=== PATIENT | male | born 1965 | race Caucasian/White ===

== ENCOUNTER 2024-10-03 11:56 | Inpatient (IN) | payer OTHER ==
[~2024-10-03] VITALS: Ht 182.9 cm; Wt 116.0 kg
[2024-10-03 13:16] LABS: PLATELET COUNT (AUTO) 185 K/uL (150-450); RED BLOOD CELL COUNT(AUTO) 5.15 MIL/uL (4.50-5.90); RED CELL DISTRIBUTION WIDTH 13.4 % (11.5-14.5); WHITE BLOOD COUNT (AUTO) 6.7 K/uL (4.5-11.0)
[2024-10-03 13:22] LABS: CALCIUM, TOTAL 8.9 mg/dL (8.8-10.5); CREATININE 1.00 mg/dL (0.60-1.30); GLOMERULAR FILTR. RATE CALC > 60 mL/min (>60); GLUCOSE,RANDOM 117 mg/dL (70-110); SODIUM SERUM 136 mmol/L (136-145); UREA NITROGEN, BLOOD 15 mg/dL (7-18)
[2024-10-03 13:32] LABS: TROPONIN I-HIGH SENSITIVITY 9 ng/L (<76)
[2024-10-03 14:03] LABS: COVID AG,FIA SOURCE NASAL SWAB
[2024-10-03] MEDS: SODIUM CHLORIDE 0.9% 1,000 ML IV ONE (14:12)
[2024-10-03] MEDS: CefTRIAXone 1 GM/DEXTROSE 50 ML IV ONE (14:12)
[2024-10-03] MEDS: MORPHINE SULFATE 2 MG/ML SYRINGE IVP ONE (14:12)
[2024-10-03] MEDS: AZITHROMYCIN 500 MG/NS 250 ML IV ONE (14:27)
[2024-10-03 14:37] LABS: SARS-COV2 (COVID) ANTIGEN,FIA Negative (Negative)
[2024-10-03 14:38] LABS: INFLUENZA TYPE A NEGATIVE FOR TYPE A (NEGATIVE); INFLUENZA TYPE B NEGATIVE FOR TYPE B (NEGATIVE)
[2024-10-03 16:29] LABS: APPEARANCE,URINE CLEAR (CLEAR); GLUCOSE, URINE (UA) NEGATIVE (NEGATIVE); LEUKOCYTE ESTERASE ,URINE NEGATIVE (NEGATIVE); NITRATE,URINE NEGATIVE (NEGATIVE); OCCULT BLOOD,URINE NEGATIVE (NEGATIVE); PH,URINE DRUG SCREEN 6.0 (5.0-8.0); SPECIFIC GRAVITIY, URINE 1.008 (1.003-1.030)
[2024-10-03 16:45] LABS: ALCOHOL, URINE DRUG SCREEN NEGATIVE (NEGATIVE); AMPHET/METH SCREEN,URINE NEGATIVE (NEGATIVE); BARBITURATE SCREEN, URINE NEGATIVE (NEGATIVE); CANNABINOID SCREEN,URINE NEGATIVE (NEGATIVE); COCAINE SCREEN,URINE NEGATIVE (NEGATIVE); METHADONE SCREEN, URINE NEGATIVE (NEGATIVE)
[2024-10-03 17:23] VITALS: BP 161/100; PULSE 99; RESP 19; TEMP 97.7; O2SAT 95
[2024-10-03 19:37] VITALS: BP 149/92; PULSE 103; RESP 19; TEMP 98.2; O2SAT 96
[2024-10-03] MEDS ORDERED: 0.9% SODIUM CHLORIDE 10 ML SYRINGE IVP ONE (20:24)
[2024-10-03] MEDS ORDERED: SODIUM CHLORIDE 0.9% 100 ML ONE (20:24)
[2024-10-03] MEDS ORDERED: IOHEXOL 350 MG/ML 100 ML VIAL ONE (20:24)
[2024-10-03] MEDS ORDERED: MAGNESIUM HYDROXIDE SUSPENSION 30 ML UDCUP PO PRN (23:15)
[2024-10-03] MEDS ORDERED: ZOLPIDEM TARTRATE 5 MG TABLET PO PRN (23:15)
[2024-10-03] MEDS: MORPHINE SULFATE 2 MG/ML SYRINGE IVP PRN (23:23)
[2024-10-03] MEDS: HEPARIN SODIUM,PORCINE 5,000 UNITS/ML VIAL SQ SCH (23:30)
[2024-10-03 23:51] VITALS: BP 145/102; PULSE 95; RESP 20; TEMP 98.4; O2SAT 98
[2024-10-04] MEDS ORDERED: ACET-3800 PO (03:10)
[2024-10-04] MEDS ORDERED: ACET-2080 PO (03:12)
[2024-10-04] MEDS ORDERED: CITA-144 PO (03:12)
[2024-10-04] MEDS ORDERED: DOCU100C33 PO (03:13)
[2024-10-04] MEDS ORDERED: HYDR25TA2 PO (03:14)
[2024-10-04] MEDS ORDERED: HYDR30CR39 TP (03:14)
[2024-10-04] MEDS ORDERED: LACT10PA5 PO (03:16)
[2024-10-04] MEDS ORDERED: LEVA15HF3 IH (03:17)
[2024-10-04] MEDS ORDERED: LIDO1ADH83 TP (03:18)
[2024-10-04] MEDS ORDERED: PANT-31 PO (03:19)
[2024-10-04] MEDS: MORPHINE SULFATE 2 MG/ML SYRINGE IVP PRN (04:56)
[2024-10-04 04:59] VITALS: BP 148/100; PULSE 96; RESP 20; TEMP 98.1; O2SAT 99
[2024-10-04 07:18] LABS: PLATELET COUNT (AUTO) 158 K/uL (150-450); RED BLOOD CELL COUNT(AUTO) 4.80 MIL/uL (4.50-5.90); RED CELL DISTRIBUTION WIDTH 13.4 % (11.5-14.5); WHITE BLOOD COUNT (AUTO) 6.0 K/uL (4.5-11.0)
[2024-10-04 07:45] LABS: CALCIUM, TOTAL 8.5 mg/dL (8.8-10.5); CREATININE 1.10 mg/dL (0.60-1.30); GLOMERULAR FILTR. RATE CALC > 60 mL/min (>60); GLUCOSE,RANDOM 112 mg/dL (70-110); SODIUM SERUM 139 mmol/L (136-145); UREA NITROGEN, BLOOD 13 mg/dL (7-18)
[2024-10-04 07:59] VITALS: BP 145/93; PULSE 100; RESP 20; TEMP 97.7; O2SAT 97
[2024-10-04] MEDS: PANTOPRAZOLE SODIUM 40 MG DR TABLET PO SCH (08:11)
[2024-10-04] MEDS: NITROGLYCERIN 0.4 MG SUBLINGUAL TABLET #25 SL PRN (09:56)
[2024-10-04] MEDS: ONDANSETRON HCL 4 MG/2 ML VIAL IVP PRN (09:56)
[2024-10-04 11:28] VITALS: BP 143/94; PULSE 109; RESP 19; TEMP 98.2; O2SAT 95
[2024-10-04] MEDS: LACTULOSE 20 GM/30 ML SOLUTION UDCUP PO PRN (12:13)
[2024-10-04] MEDS: BISACODYL 10 MG RECTAL RECTAL SUPPOSITORY PR PRN (12:13)
[2024-10-04 15:45] VITALS: BP 150/98; PULSE 100; RESP 20; TEMP 98.4; O2SAT 96
[2024-10-04] MEDS ORDERED: LACTULOSE 20 GM/30 ML SOLUTION UDCUP PO SCH (16:00)
[2024-10-04 19:30] VITALS: BP 138/88; PULSE 111; RESP 20; TEMP 98.6; O2SAT 93
[2024-10-04 23:18] VITALS: BP 148/96; PULSE 115; RESP 20; TEMP 99.1; O2SAT 100
[2024-10-05 04:00] VITALS: BP 148/58; PULSE 112; RESP 20; TEMP 98.6; O2SAT 96
[2024-10-05 06:59] LABS: PLATELET COUNT (AUTO) 174 K/uL (150-450); RED BLOOD CELL COUNT(AUTO) 4.87 MIL/uL (4.50-5.90); RED CELL DISTRIBUTION WIDTH 13.2 % (11.5-14.5); WHITE BLOOD COUNT (AUTO) 6.4 K/uL (4.5-11.0)
[2024-10-05 07:58] VITALS: BP 159/98; PULSE 117; RESP 24; TEMP 98.4; O2SAT 96
[2024-10-05 08:12] LABS: CALCIUM, TOTAL 8.4 mg/dL (8.8-10.5); CREATININE 0.87 mg/dL (0.60-1.30); GLOMERULAR FILTR. RATE CALC > 60 mL/min (>60); GLUCOSE,RANDOM 116 mg/dL (70-110); SODIUM SERUM 138 mmol/L (136-145); UREA NITROGEN, BLOOD 15 mg/dL (7-18)
[2024-10-05 11:45] VITALS: BP 132/92; PULSE 106; RESP 22; TEMP 98.2; O2SAT 94
[2024-10-05 16:12] VITALS: BP 129/86; PULSE 103; RESP 20; TEMP 97.7; O2SAT 97
[2024-10-05 19:48] VITALS: BP 155/104; PULSE 110; RESP 19; TEMP 98.8; O2SAT 97
[2024-10-05 23:14] VITALS: BP 122/86; PULSE 110; RESP 19; TEMP 98.6; O2SAT 100
[2024-10-06] VITALS (12 sets, daily range): BP systolic 118–147; BP diastolic 89–102; PULSE 96–118; RESP 16–23; TEMP 97.8–99.3; O2SAT 95–100
[2024-10-06] MEDS ORDERED: IPRATROPIUM BROMIDE 0.5 MG/2.5 ML NEB SOLUTION NEB PRN (03:45)
[2024-10-06] MEDS ORDERED: ALBUTEROL SULFATE 2.5 MG/0.5 ML NEB SOLUTION NEB PRN (03:45)
[2024-10-06] MEDS: IPRATROPIUM BROMIDE 0.5 MG/2.5 ML NEB SOLUTION NEB PRN (04:01)
[2024-10-06] MEDS: ALBUTEROL SULFATE 2.5 MG/0.5 ML NEB SOLUTION NEB PRN (04:01)
[2024-10-06] MEDS: BENZOCAINE/MENTHOL [CEPACOL] LOZENGE PO PRN (09:19)
[2024-10-07] VITALS (7 sets, daily range): BP systolic 124–156; BP diastolic 93–106; PULSE 101–118; RESP 18–20; TEMP 97.9–98.8; O2SAT 94–100
[2024-10-07] MEDS: SODIUM PHOSPHATE,MONO-DIBASIC 133 ML ENEMA PR ONE (01:00)
[2024-10-07 14:50] LABS: GLUCOMETER DEV NAME(LOC) 5N.2C; GLUCOSE,POINT OF CARE 124 MG/DL (70-110)
[2024-10-07] MEDS: ACETAMINOPHEN 325 MG TABLET PO PRN (23:47)
[2024-10-08 00:20] VITALS: BP 144/99; PULSE 111; RESP 19; TEMP 98.6; O2SAT 95
[2024-10-08 03:18] VITALS: BP 127/106; PULSE 104; RESP 21; TEMP 98.2; O2SAT 96
[2024-10-08] MEDS: HYDROCODONE/ACETAMINOPHEN 5-325 MG TABLET PO PRN (08:07)
[2024-10-08 08:12] VITALS: BP 147/106; PULSE 112; RESP 21; TEMP 97.7; O2SAT 97
[2024-10-08] MEDS ORDERED: LIDOCAINE/PF 1% 30 ML VIAL ONE (09:56)
[2024-10-08 10:03] VITALS: BP 165/89; PULSE 117
[2024-10-08] MEDS: LIDOCAINE 1% 30 ML/SOD BICARB 8.4% 4 ML SQ ONE (10:51)
[2024-10-08 10:55] VITALS: BP 137/78; PULSE 100
[2024-10-08 15:18] LABS: SPECIMENTYPE,BODY FLUID PLV
[2024-10-08 15:59] LABS: APPEARANCE,SPUN,BODY FLUID CLEAR (CLEAR); APPEARANCE,UNSPUN,BODY FLUID HAZY (CLEAR); COLOR,BODY FLUID YELLOW (LT YELLOW)
[2024-10-08 16:00] LABS: BODY FLUID RBC 260.0 /cu. mm.; LYMPHOCYTES,BODY FLUID 31 %; MONOCYTES,BODY FLUID 16 %; NEUTROPHILS,BODY FLUID 53 %; TOTAL VOLUME,BODY FLUID 1100 mL; WBC, BODY FLUID 280 /cu. mm.
[2024-10-08 16:01] LABS: PH, BODY FLUID 7.0
[2024-10-08 19:35] VITALS: BP 133/98; PULSE 115; RESP 19; TEMP 98.2; O2SAT 94
[2024-10-08] MEDS: SIMETHICONE 80 MG CHEWABLE TABLET CHEW PRN (20:44)
[2024-10-09] VITALS (9 sets, daily range): BP systolic 111–144; BP diastolic 85–95; PULSE 101–115; RESP 18–22; TEMP 97.9–99; O2SAT 92–100
[2024-10-09 06:18] LABS: PLATELET COUNT (AUTO) 213 K/uL (150-450); RED BLOOD CELL COUNT(AUTO) 5.38 MIL/uL (4.50-5.90); RED CELL DISTRIBUTION WIDTH 13.3 % (11.5-14.5); WHITE BLOOD COUNT (AUTO) 7.9 K/uL (4.5-11.0)
[2024-10-09 06:20] LABS: CALCIUM, TOTAL 9.1 mg/dL (8.8-10.5); CREATININE 1.10 mg/dL (0.60-1.30); GLOMERULAR FILTR. RATE CALC > 60 mL/min (>60); GLUCOSE,RANDOM 115 mg/dL (70-110); SODIUM SERUM 134 mmol/L (136-145); UREA NITROGEN, BLOOD 16 mg/dL (7-18)
[2024-10-09 14:07] LABS: GLUCOSE, BODY FLUID,REF 118.0 mg/dL; LDH,BODY FLUID,REF 135.0 IU/L; TOTAL PROTEIN,BODY FLUID,REF 4.4 g/dL; URIC ACID, BODY FLUID,REF 4.5 mg/dL
[2024-10-10] VITALS (8 sets, daily range): BP systolic 116–147; BP diastolic 51–95; PULSE 95–114; RESP 17–19; TEMP 97.9–99.1; O2SAT 96–98
[2024-10-10 06:11] LABS: PLATELET COUNT (AUTO) 145 K/uL (150-450); RED BLOOD CELL COUNT(AUTO) 4.61 MIL/uL (4.50-5.90); RED CELL DISTRIBUTION WIDTH 13.8 % (11.5-14.5); WHITE BLOOD COUNT (AUTO) 6.2 K/uL (4.5-11.0)
[2024-10-10 06:23] LABS: CALCIUM, TOTAL 8.2 mg/dL (8.8-10.5); CREATININE 1.01 mg/dL (0.60-1.30); GLOMERULAR FILTR. RATE CALC > 60 mL/min (>60); GLUCOSE,RANDOM 116 mg/dL (70-110); SODIUM SERUM 136 mmol/L (136-145); UREA NITROGEN, BLOOD 14 mg/dL (7-18)
[2024-10-10] MEDS ORDERED: LIDOCAINE/PF 1% 30 ML VIAL ONE (11:21)
[2024-10-10] MEDS: LIDOCAINE 1% 30 ML/SOD BICARB 8.4% 4 ML SQ ONE (11:31)
[2024-10-11 03:57] VITALS: BP 151/96; PULSE 94; RESP 18; TEMP 97.7; O2SAT 98
[2024-10-11 08:47] VITALS: BP 136/86; PULSE 102; RESP 18; TEMP 98.2; O2SAT 97
[2024-10-11 15:28] VITALS: BP 131/81; PULSE 100; RESP 18; TEMP 98; O2SAT 98
[2024-10-11 20:06] VITALS: BP 133/88; PULSE 97; RESP 20; TEMP 98.6; O2SAT 94
[2024-10-12 00:20] VITALS: BP 133/99; PULSE 99; RESP 18; TEMP 98.2; O2SAT 97
[2024-10-12 05:50] VITALS: BP 133/76; PULSE 99; RESP 18; TEMP 99.1; O2SAT 93
[2024-10-12 08:33] VITALS: BP 141/85; PULSE 111; RESP 18; TEMP 98.2; O2SAT 95
[2024-10-12 12:07] VITALS: BP 129/74; PULSE 102; RESP 18; TEMP 98.8; O2SAT 95
[2024-10-12 16:10] VITALS: BP 125/75; PULSE 102; RESP 18; TEMP 98.6; O2SAT 94
[2024-10-12 19:54] VITALS: BP 104/86; PULSE 115; RESP 18; TEMP 100; O2SAT 91
[2024-10-13 01:02] VITALS: BP 133/96; PULSE 105; RESP 18; TEMP 98.1; O2SAT 93
[2024-10-13 05:37] VITALS: BP 109/71; PULSE 102; RESP 17; TEMP 100; O2SAT 95
[2024-10-13 07:12] LABS: PLATELET COUNT (AUTO) 169 K/uL (150-450); RED BLOOD CELL COUNT(AUTO) 5.44 MIL/uL (4.50-5.90); RED CELL DISTRIBUTION WIDTH 14.6 % (11.5-14.5); WHITE BLOOD COUNT (AUTO) 7.8 K/uL (4.5-11.0)
[2024-10-13 07:18] LABS: CALCIUM, TOTAL 8.6 mg/dL (8.8-10.5); CREATININE 1.09 mg/dL (0.60-1.30); GLOMERULAR FILTR. RATE CALC > 60 mL/min (>60); GLUCOSE,RANDOM 102 mg/dL (70-110); SODIUM SERUM 133 mmol/L (136-145); UREA NITROGEN, BLOOD 12 mg/dL (7-18)
[2024-10-13 09:30] VITALS: PULSE 102; TEMP 98.9
[2024-10-13 11:22] VITALS: BP 129/81; PULSE 103; RESP 18; TEMP 98.2; O2SAT 95
[2024-10-13 16:17] VITALS: BP 137/96; PULSE 82; RESP 18; TEMP 98.2; O2SAT 96
[2024-10-13 20:47] VITALS: BP 146/94; PULSE 104; RESP 18; TEMP 98.4; O2SAT 99
[2024-10-14 00:48] VITALS: BP 148/89; PULSE 111; RESP 17; TEMP 98.4; O2SAT 95
[2024-10-14 04:00] VITALS: BP 145/98; PULSE 112; RESP 18; TEMP 98.2; O2SAT 94
[2024-10-14 07:48] VITALS: BP 135/102; PULSE 116; RESP 18; TEMP 98.1; O2SAT 93
[2024-10-14 11:50] VITALS: BP 125/85; PULSE 108; RESP 18; TEMP 98.1; O2SAT 94
[2024-10-14 19:34] VITALS: BP 129/93; PULSE 108; RESP 19; TEMP 98.2; O2SAT 95
[2024-10-15] VITALS (7 sets, daily range): BP systolic 109–144; BP diastolic 66–94; PULSE 100–118; RESP 18–19; TEMP 98–99.1; O2SAT 95–97
[2024-10-15 06:33] LABS: PLATELET COUNT (AUTO) 145 K/uL (150-450); RED BLOOD CELL COUNT(AUTO) 4.83 MIL/uL (4.50-5.90); RED CELL DISTRIBUTION WIDTH 14.1 % (11.5-14.5); WHITE BLOOD COUNT (AUTO) 6.7 K/uL (4.5-11.0)
[2024-10-15 06:44] LABS: CALCIUM, TOTAL 8.3 mg/dL (8.8-10.5); CREATININE 1.17 mg/dL (0.60-1.30); GLOMERULAR FILTR. RATE CALC > 60 mL/min (>60); GLUCOSE,RANDOM 106 mg/dL (70-110); SODIUM SERUM 134 mmol/L (136-145); UREA NITROGEN, BLOOD 15 mg/dL (7-18)
[2024-10-15] MEDS ORDERED: 0.9% SODIUM CHLORIDE 10 ML SYRINGE IVP ONE (11:20)
[2024-10-15] MEDS ORDERED: IOHEXOL 350 MG/ML 100 ML VIAL ONE (11:20)
[2024-10-15] MEDS ORDERED: SODIUM CHLORIDE 0.9% 100 ML ONE (11:20)
[2024-10-16] VITALS (7 sets, daily range): BP systolic 122–146; BP diastolic 79–89; PULSE 77–113; RESP 18–19; TEMP 97.5–99.5; O2SAT 94–97
[2024-10-16 06:20] LABS: PLATELET COUNT (AUTO) 155 K/uL (150-450); RED BLOOD CELL COUNT(AUTO) 5.03 MIL/uL (4.50-5.90); RED CELL DISTRIBUTION WIDTH 14.3 % (11.5-14.5); WHITE BLOOD COUNT (AUTO) 6.1 K/uL (4.5-11.0)
[2024-10-16 06:31] LABS: CALCIUM, TOTAL 8.2 mg/dL (8.8-10.5); CREATININE 1.37 mg/dL (0.60-1.30); GLOMERULAR FILTR. RATE CALC 53.0 mL/min (>60); GLUCOSE,RANDOM 109.0 mg/dL (70-110); SODIUM SERUM 134.0 mmol/L (136-145); UREA NITROGEN, BLOOD 16.0 mg/dL (7-18)
[2024-10-17 04:15] VITALS: BP 106/63; PULSE 92; RESP 18; TEMP 98.8; O2SAT 96
[2024-10-17 08:43] VITALS: BP 133/87; PULSE 95; RESP 18; TEMP 97.3; O2SAT 100
[2024-10-17] MEDS ORDERED: HYDR25TA84 PO (15:36)
[2024-10-17] MEDS ORDERED: ALBU2.5V39 NEB (15:37)
[2024-10-17] MEDS ORDERED: BENZ1LOZ50 PO (15:38)
[2024-10-17] MEDS ORDERED: HYDR-4062 PO (15:39)
[2024-10-17] MEDS ORDERED: HYDR-4072 PO (15:39)
[2024-10-17] MEDS ORDERED: IPRA0.2S49 NEB (15:39)
[2024-10-17] MEDS ORDERED: LACT10SO85 PO (15:40)
[2024-10-17] MEDS ORDERED: NITR0.4T52 SL (15:41)
[2024-10-17] MEDS ORDERED: SIME80TA82 PO (15:41)
[2024-10-17] MEDS ORDERED: BISA-151 PO (15:42)
[2024-10-17] MEDS ORDERED: ZOLP-280 PO (15:42)
== END 2024-10-17 17:30 | DRG 189 ==
LOC: EMS 11:59 → EDH 14:51 → 5S 16:51 → 6N 10-16 14:50
PROVIDERS: ADMIT Hospitalist; ATTEND Hospitalist
PROC: 0W9B30Z Drainage of Left Pleural Cavity with Drainage Device, Percutaneous Approach (ICD-10-PCS; principal; 2024-10-08)
PROC: 0W9930Z Drainage of Right Pleural Cavity with Drainage Device, Percutaneous Approach (ICD-10-PCS; 2024-10-10)
DX: J96.01 Acute respiratory failure with hypoxia (principal); J69.0 Pneumonitis due to inhalation of food and vomit; C15.9 Malignant neoplasm of esophagus, unspecified; J91.0 Malignant pleural effusion; I10 Essential (primary) hypertension; F32.A Depression, unspecified; Z20.822 Contact with and (suspected) exposure to COVID-19; K59.00 Constipation, unspecified; K86.9 Disease of pancreas, unspecified; Z88.8 Allergy status to other drugs, medicaments and biological substances; Z92.21 Personal history of antineoplastic chemotherapy
CPT/HCPCS: 71045; 71260; 71275; 72193; 74160; 75989; 80048; 80307; 81001; 82945; 82962; 83615; 83880; 83986; 84157; 84484; 84560; 85025; 85379; 85610; 87040; 87075; 87205; 87804; 88108; 88305; 89051; 93005; 94640; 94660; 94760; 96365; 96368; 96375; 99285; J0456; J0696; J1644; J2270; J2405; J3490; J7030; J7050; 36415-L1; 36415-TC; 87070; J7613

== ENCOUNTER 2024-10-18 05:43 | Inpatient (IN) | payer OTHER ==
[~2024-10-18] VITALS: Ht 182.9 cm; Wt 107.5 kg
[~2024-10-18 05:43] MED LIST: ACET-3800 PO; ALBU2.5V39 NEB; BENZ1LOZ50 PO; BISA-151 PO; CITA-144 PO; DOCU100C33 PO; HYDR-4062 PO; HYDR-4072 PO; HYDR25TA2 PO; HYDR25TA84 PO; HYDR30CR39 TP; IPRA0.2S49 NEB; LACT10SO85 PO; LEVA15HF3 IH; LIDO1ADH83 TP; NITR0.4T52 SL; PANT-31 PO; SIME80TA82 PO; ZOLP-280 PO
[2024-10-18] MEDS: MORPHINE SULFATE 2 MG/ML SYRINGE IVP ONE (06:43)
[2024-10-18 06:48] LABS: PLATELET COUNT (AUTO) 166 K/uL (150-450); RED BLOOD CELL COUNT(AUTO) 4.82 MIL/uL (4.50-5.90); RED CELL DISTRIBUTION WIDTH 14.6 % (11.5-14.5); WHITE BLOOD COUNT (AUTO) 6.7 K/uL (4.5-11.0)
[2024-10-18 06:55] LABS: COVID AG,FIA SOURCE NASAL SWAB
[2024-10-18 07:01] LABS: CALCIUM, TOTAL 8.3 mg/dL (8.8-10.5); CREATININE 1.49 mg/dL (0.60-1.30); GLOMERULAR FILTR. RATE CALC 48.0 mL/min (>60); GLUCOSE,RANDOM 113.0 mg/dL (70-110); SODIUM SERUM 134.0 mmol/L (136-145); UREA NITROGEN, BLOOD 23.0 mg/dL (7-18)
[2024-10-18 07:03] LABS: ASPARTATE AMINOTRANSFERASE 26 U/L (15-37); TOTAL PROTEIN, SERUM 5.7 g/dL (6.4-8.2)
[2024-10-18] MEDS ORDERED: IOHEXOL 350 MG/ML 100 ML VIAL ONE (07:04)
[2024-10-18] MEDS ORDERED: SODIUM CHLORIDE 0.9% 100 ML ONE (07:04)
[2024-10-18 07:09] LABS: LACTIC ACID 0.9 mmol/L (0.4-2.0)
[2024-10-18 07:26] LABS: INFLUENZA TYPE A NEGATIVE FOR TYPE A (NEGATIVE); INFLUENZA TYPE B NEGATIVE FOR TYPE B (NEGATIVE); SARS-COV2 (COVID) ANTIGEN,FIA Negative (Negative)
[2024-10-18] MEDS: PIPERACILLIN/TAZO 3.375 GM/D5W 50 ML IV ONE (07:56)
[2024-10-18] MEDS: AZITHROMYCIN 500 MG/NS 250 ML IV ONE (07:56)
[2024-10-18] MEDS: VANCOMYCIN 1.25 GM/WATER(PEG) 250 ML IV ONE (08:07)
[2024-10-18] MEDS: DOCUSATE SODIUM 100 MG CAPSULE PO ONE (09:14)
[2024-10-18] MEDS ORDERED: HYDROCODONE/ACETAMINOPHEN 5-325 MG TABLET PO PRN (14:00)
[2024-10-18] MEDS ORDERED: ZOLPIDEM TARTRATE 5 MG TABLET PO PRN (14:00)
[2024-10-18] MEDS ORDERED: LEVALBUTEROL TARTRATE HFA 45 MCG/PUFF 15 GM INHALER IH PRN (14:00)
[2024-10-18] MEDS ORDERED: IPRATROPIUM BROMIDE 0.5 MG/2.5 ML NEB SOLUTION NEB PRN (14:00)
[2024-10-18] MEDS ORDERED: ACETAMINOPHEN 325 MG TABLET PO PRN (14:00)
[2024-10-18] MEDS: HEPARIN SODIUM,PORCINE 5,000 UNITS/ML VIAL SQ SCH (16:00)
[2024-10-18 16:27] VITALS: BP 114/79; PULSE 91; RESP 17; TEMP 98.2; O2SAT 99
[2024-10-18] MEDS ORDERED: SODIUM CHLORIDE 0.9% 250 ML IV ONE (17:27)
[2024-10-18] MEDS: PIPERACILLIN/TAZO 3.375 GM/D5W 50 ML IV SCH (17:37)
[2024-10-18 20:18] VITALS: BP 120/86; PULSE 104; RESP 18; TEMP 99; O2SAT 94
[2024-10-18] MEDS: MORPHINE SULFATE 2 MG/ML SYRINGE IVP PRN (20:20)
[2024-10-18] MEDS: DOCUSATE SODIUM 100 MG CAPSULE PO SCH (20:20)
[2024-10-18] MEDS: ONDANSETRON HCL 4 MG/2 ML VIAL IVP PRN (20:20)
[2024-10-18] MEDS: VANCOMYCIN 1GM/WATER(PEG/NADA) 200 ML IV SCH (20:21)
[2024-10-19 00:30] VITALS: BP 103/86; PULSE 99; RESP 17; TEMP 99.2; O2SAT 96
[2024-10-19 04:00] VITALS: BP 130/87; PULSE 108; RESP 18; TEMP 98.6; O2SAT 95
[2024-10-19] MEDS: MAGNESIUM HYDROXIDE SUSPENSION 30 ML UDCUP PO PRN (05:27)
[2024-10-19] MEDS: SIMETHICONE 80 MG CHEWABLE TABLET PO PRN (05:27)
[2024-10-19] MEDS ORDERED: BISACODYL 10 MG RECTAL RECTAL SUPPOSITORY PR PRN (05:45)
[2024-10-19 06:24] LABS: PLATELET COUNT (AUTO) 167 K/uL (150-450); RED BLOOD CELL COUNT(AUTO) 4.81 MIL/uL (4.50-5.90); RED CELL DISTRIBUTION WIDTH 14.6 % (11.5-14.5); WHITE BLOOD COUNT (AUTO) 5.2 K/uL (4.5-11.0)
[2024-10-19 06:40] LABS: CALCIUM, TOTAL 8.1 mg/dL (8.8-10.5); CREATININE 1.3 mg/dL (0.60-1.30); GLOMERULAR FILTR. RATE CALC 56.0 mL/min (>60); GLUCOSE,RANDOM 114.0 mg/dL (70-110); SODIUM SERUM 134.0 mmol/L (136-145); UREA NITROGEN, BLOOD 18.0 mg/dL (7-18)
[2024-10-19 07:53] VITALS: BP 131/87; PULSE 92; RESP 18; TEMP 98.6; O2SAT 96
[2024-10-19] MEDS: CITALOPRAM HYDROBROMIDE 20 MG TABLET PO SCH (09:10)
[2024-10-19] MEDS: PANTOPRAZOLE SODIUM 40 MG DR TABLET PO SCH (09:10)
[2024-10-19] MEDS: BISACODYL 10 MG RECTAL RECTAL SUPPOSITORY PR PRN (09:28)
[2024-10-19 12:06] VITALS: BP 125/88; PULSE 102; RESP 18; TEMP 98.8; O2SAT 96
[2024-10-19] MEDS: MINERAL OIL 133 ML ENEMA PR ONE (14:43)
[2024-10-19 15:17] LABS: APPEARANCE,URINE CLEAR (CLEAR); GLUCOSE, URINE (UA) NEGATIVE (NEGATIVE); LEUKOCYTE ESTERASE ,URINE NEGATIVE (NEGATIVE); NITRATE,URINE NEGATIVE (NEGATIVE); OCCULT BLOOD,URINE NEGATIVE (NEGATIVE); SPECIFIC GRAVITIY, URINE 1.024 (1.003-1.030)
[2024-10-19 15:39] VITALS: BP 122/89; PULSE 102; RESP 18; TEMP 99.1; O2SAT 93
[2024-10-19] MEDS ORDERED: BACI28.410 TP (16:02)
[2024-10-19] MEDS ORDERED: MAGN-169 PO (16:03)
[2024-10-19] MEDS ORDERED: AMOX-457 PO (16:09)
[2024-10-19] MEDS ORDERED: BACITRACIN 28 GM OINTMENT TP SCH (21:00)
== END 2024-10-19 18:30 | DRG 392 ==
LOC: EMS 06:08 → EDH 09:01 → 5N 12:00
PROVIDERS: ADMIT Internal Medicine; ATTEND Internal Medicine
DX: K52.89 Other specified noninfective gastroenteritis and colitis (principal); N17.9 Acute kidney failure, unspecified; K86.9 Disease of pancreas, unspecified; R09.02 Hypoxemia; F32.A Depression, unspecified; Z20.822 Contact with and (suspected) exposure to COVID-19; K59.00 Constipation, unspecified; I10 Essential (primary) hypertension; J45.909 Unspecified asthma, uncomplicated; Z92.21 Personal history of antineoplastic chemotherapy; Z85.118 Personal history of other malignant neoplasm of bronchus and lung; Z85.01 Personal history of malignant neoplasm of esophagus
CPT/HCPCS: 71045; 71260; 72193; 74160; 80048; 80076; 81003; 83605; 83690; 85025; 87040; 87075; 87205; 87804; 96365; 96366; 96367; 96368; 96375; 99285; J0456; J1644; J2270; J2405; J2543; J7050; 36415-L1; 36415-TC; 87070